=== PATIENT | female | born 1965 | race Caucasian/White ===

== ENCOUNTER 2021-10-27 19:12 | Emergency (ER) | payer BC ==
[~2021-10-27 19:12] MED LIST: NORCO 7.5-3251 EACH PO
[2021-10-27 20:16] LABS: HEMOGLOBIN 11.5 gm/dl (12.3-15.3); RED BLOOD COUNT 4.11 M/UL (4.00-5.10); WHITE BLOOD COUNT 10.3 K/UL (4.5-11.0)
[2021-10-27 20:51] LABS: BUN/CREATININE RATIO 33 (0-10)
== END 2021-10-27 23:27 | disposition home or self-care (01) ==
LOC: ER1 19:12
PROVIDERS: Physician Assistant
DX: E86.0 Dehydration (principal); E11.65 Type 2 diabetes mellitus with hyperglycemia; E78.5 Hyperlipidemia, unspecified; Z90.710 Acquired absence of both cervix and uterus; Z88.8 Allergy status to other drugs, medicaments and biological substances; Z79.82 Long term (current) use of aspirin
CPT/HCPCS: 80053; 81001; 82550; 82553; 83690; 84484; 85025; 93005; 99285